=== PATIENT | male | born 1975 | race Caucasian/White ===

== ENCOUNTER → 2019-12-21 11:21 | Outpatient (CLI) | payer BC, SELFPAY ==
[2019-12-21 10:35] VITALS: BMI 32.4
--- NOTE | 2019-12-21 11:54 | RAD_ITS ---
STUDY: X-RAY - LEFT SHOULDER REASON FOR EXAM: Male, 44 years old. PAIN FOR FEW MONTHS, NO KNOWN INJURY TECHNIQUE: 4 view(s) of the shoulder. COMPARISON: None. FINDINGS: Normal glenohumeral articulation. Normal acromioclavicular joint. Normal acromion. Normal humeral head and visualized proximal humerus. The soft tissue structures are unremarkable. Normal visualized pulmonary apex. RAD/Shoulder min 2 Views IMPRESSION: Normal x-ray examination of the shoulder. Electronically Signed: Billy Hernandez MD at 6:36 EDT Tel , Service support ,
[2019-12-21 12:13] LABS: Absolute Lymphocyte Count 1.99 X10^3/uL (0.83-4.51); Absolute Neutrophil Count 2.3 X10^3/uL (2.0-7.7); Basophil# 0.03 X10^3/uL; Basophil% 0.6 % (0-1); Eosinophil# 0.14 X10^3/uL; Eosinophils% 2.9 % (0-5); Hematocrit 44.5 % (40-54); Hemoglobin 14.7 g/dL (13.0-16.5); Lymphocyte # 1.99 X10^3/ul (4.0); Lymphocyte % 40.6 % (19-41); Mean Corpuscular Hgb 29.6 pg (27.0-32.0); Mean Corpuscular Volume 89.5 fL (80-94); Mean Platelet Vol. 9.8 fl (6.2-12.0); Monocyte# 0.43 X10^3/uL; Monocyte% 8.8 % (0-10); NRBC Flagged by Analyzer 0 % (0-5); Neutrophil # 2.29 X10^3/uL (2.7-7.7); Neutrophil % 46.7 % (47-70); Platelet Count 284 K/mm3 (150-450); RBC Distribution Width CV 11.8 % (11.6-14.6); RBC Distribution Width SD 38.1 fl (35.1-43.9); Red Blood Count 4.97 M/mm3 (4.6-6.2); White Blood Count 4.9 K/mm3 (4.4-11.0)
[2019-12-21 15:36] LABS: Albumin, Serum 4.2 g/dL (3.2-5.0); BUN 13 mg/dL (7-18); BUN/Creat Ratio 14.3 RATIO (10-20); Creatinine, Serum 0.91 mg/dL (0.70-1.30); EST Glomerular Filtration Rate 97 mL/min (>60); Est Glom Filt Rate - Afr Amer 117 mL/min (>60); Glucose 89 mg/dL (74-106); Protein, Total 7.5 g/dL (6.4-8.2)
[2019-12-21 15:37] LABS: ALB/GLOB Ratio 1.3 RATIO (0.9-2.4); AST(SGOT) 19 U/L (15-37); Alanine Aminotransfer ALT/SGPT 58 U/L (16-61); Alkaline Phosphatase 77 U/L (45-117); Anion Gap 3 (5-15); Chloride 106 mmol/L (98-107); Cholesterol 197 mg/dL (200); Globulin 3.3 g/dL (2.2-4.2); High Density Lipoprotein 50 mg/dL; Sodium Level 139 mmol/L (136-145); Triglycerides 172 mg/dL; Very Low Density Lipoprotein 34 mg/dL (5-40)
== END ==
PROVIDERS: PCP Internal Medicine; Referring Provider Internal Medicine; Visit Provider Internal Medicine
DX: I10 Essential (primary) hypertension (principal); M25.512 Pain in left shoulder
CPT/HCPCS: 36415; 73030; 80053; 80061; 85025

== ENCOUNTER → 2020-05-16 07:08 | Outpatient (CLI) | payer BC, SELFPAY ==
--- NOTE | 2020-05-16 07:15 | MRI_ITS ---
STUDY: MRI LEFT SHOULDER REASON FOR EXAM: Left shoulder pain for over 6 months, question weight lifting injury. TECHNIQUE: Standardized fat and water weighted pulse sequences were obtained in all 3 orthogonal planes. COMPARISON: Radiographs 12/21/2019. FINDINGS: There is mild supraspinatus tendinosis and a small full-thickness tear of the distal anterior supraspinatus tendon (T2 coronal image 8; T2 sagittal image 17; proton-density axial image 5) measuring approximately 1.0 x 0.8 cm (length x width). Normal infraspinatus tendon. Normal subscapularis tendon. Normal teres minor tendon. Normal supraspinatus muscle. Normal infraspinatus muscle. Normal subscapularis muscle. Normal teres minor muscle. There is a very small volume of fluid in the glenohumeral joint. Normal humeral head and visualized proximal humerus. Normal biceps labral complex. There is mild tendinosis of the intracapsular long biceps tendon (T2 sagittal images 10-12). Normal labrum. Normal capsulo- ligamentous complex. There is mild acromioclavicular arthrosis without substantial undersurface osteophytes (T2 sagittal image 10). There is a Type II morphology (curved), with a neutral orientation. There is a small volume of subacromial-subdeltoid bursal fluid. There is thickening of the coracoacromial ligament (T2 sagittal image 14). Normal deltoid muscle. Normal trapezius muscle. MRI/Upper Ext Joint Only(Routine) IMPRESSION: Small full-thickness tear and mild tendinosis of the supraspinatus tendon. Mild tendinosis of the long biceps tendon. Mild acromioclavicular arthrosis. Thickening of the coracoacromial ligament. Glenohumeral joint fluid communicating with the subacromial-subdeltoid bursa. Electronically Signed: Tristan Shearer MD at 10:46 EST Tel , Service support ,
== END ==
PROVIDERS: PCP Internal Medicine; Referring Provider Orthopaedic Surgery; Visit Provider Orthopaedic Surgery
DX: M25.512 Pain in left shoulder (principal); M19.012 Primary osteoarthritis, left shoulder
CPT/HCPCS: 73221

== ENCOUNTER 2020-05-27 07:03 | Day surgery (SDC) | payer BC, SELFPAY ==
[2020-03-28 11:01] VITALS: BMI 32.7
[2020-05-27] MEDS: Lactated Ringers 1,000 ML 100 ML IV ×2 (07:20→13:20)
[2020-05-27 07:34] VITALS: BP 152/69; PULSE 63; RESP 16; TEMP 36.3; O2SAT 100; BMI 33.5
--- NOTE | 2020-05-27 09:57 | HP.PCM_ITS ---
History and Physical Date of Admission: 05/27/20 Intake Intake Visit Reasons: LEFT SHOULDER Chief Complaint: 3 M F/U Shoulder pain and elevated blood pressure Allergies No Known Allergies Allergy (Verified 03/28/20 11:00) [facility] Surgical History history of right shoulder surgery (Acute) Family History Father Charcot-Belen disease Social History (Updated 05/19/20 @ 15:[address] Rj Prabhakar DO) Smoking Status: Never smoker alcohol intake: never substance use type: does not use what type of physical activity do you participate in: weight training HPI LEFT SHOULDER: Details: Parts of this documentation were recorded by a scribe, this documentation accurately reflects the service provided and the decisions made by me, Dr. Rj Prabhakar DO 05/19/20 0757. LAURE CURRY is a 44 year old M here today for F/U after MRI of the left shoulder. He continues to have pain over the AC Joint. Denies any changes since the last visit. Denies numbness, tingling or other associated symptoms.He also pain over his trap and tightness over the trap. He states that he has pain with weight lifting over head. ROS Const Reports weakness Musc Reports joint pain, Reports decreased muscle mass, Denies joint swelling, Denies limited joint movement, Denies numbness, Denies radiating pain into limb, Reports stiffness, Denies tingling Skin/Breast Denies redness, Denies lesions, Denies itching, Denies rash, Denies skin swelling Neuro No numbness, No tingling, Yes weakness Ortho Exam General General: Yes no acute distress Neurologic: Yes alert, Yes oriented x3 Psychologic: Yes reasonable and appropriate Left Shoulder Skin/Wound: No ecchymosis, No erythema, No swelling Testing: Yes Hawkin's, No Speed's, No TTP Biceps (mild), Yes TTP AC Joint, No Drop Arm, No Apprehension Test SHOULDER: 5 out of 5 rotator cuff strength no pain with resisted maneuvers Supplemental Info 05/16/2020 MRI left shoulder:Read as small full-thickness tear anterior supraspinatus mild tendinosis long head bicepsThere is AC joint arthrosis with mild edemaIn the bone and inferior spurring. 12/21/2019 x-ray left shoulder mild anterior acromial spurring mild rimming osteophytes of glenoid circumferentially Assessment & Plan Problems 1. Arthritis of left acromioclavicular joint M19.012 2. Impingement syndrome, shoulder, left M75.42 3. Nontraumatic complete tear of left rotator cuff M75.122 Plan Personally reviewed patients MRI of the left shoulder. Patient educated that the MRI shows that he has a Full-thickness small anterior supraspinatus Tendon tear. However he does not seem to have any rotator cuff pain on examination and good strength seems to be all related to the AC joint. He does have arthritis of the AC joint and edema. He does have some degenerative changes to the biceps but no tears noted. Treatment options are left AC joint injection or surgery forDistal clavicle excision subacromial decompression possible rotator cuff repair. Patient wishes to proceed with his surgical option. If there is no RTC repair then he will be able to move the arm as tolerated with mild restrictions if there is a repair he will be in a sling for 6 weeks post op. Reviewed the pre- operative plans with the patient. Risks and benefits of the procedure were fully explained, including but not limited to infection, neurovascular injury, continued pain, arthritis, stiffness, need for further surgery, re-injury, DVT, PE, general risks of anesthesia, and loss of limb or life. The patient understands all the risks and does wish to proceed with written consent for left shoulder arthroscopic subacromial decompression, evaluation of RTC possible RTC repair, open distal clavicle resection, surgery as indicated. Follow up 2 weeks post op or sooner if pain, swelling, numbness or associated symptoms, or concerns develop. All questions answered. Patient in agreement of plan. Coding Level of Care Code Off vis,est,level 3 Diagnoses Arthritis of left acromioclavicular joint M19.012 ??Laterality: left Impingement syndrome, shoulder, left M75.42 Nontraumatic complete tear of left rotator cuff M75.122 ??Rotator cuff tear extent: complete ??Rotator cuff tear trauma status: nontraumatic I have re-examined the patient. There are no clinical changes since date of exam
[2020-05-27] MEDS: Cefazolin 2 GM in 0.9% Normal Saline 100 ML IV (10:58)
[2020-05-27] MEDS: Bupiv/Epi 0.5% Mpf 30 ML Vial (11:07)
[2020-05-27] MEDS: Epinephrine (1 mg/ml) 1 MG/ML VIAL (11:10)
--- NOTE | 2020-05-27 12:17 | DCINST_ITS ---
Discharge Diet: No Restrictions Call your doctor if you observe: Shortness of breath, Chest pain Additional Instructions: Leave the dressing on and intact for 48 hours. . Then may remove and shower with warm water and antibacterial soap. But do not submerge in tub for 3 weeks. Ice shoulder 15 min on and 15 mins off next 72 hrs. May remove sling for elbow range of motion and pendulum exercises only then replace sling. Absolutely no active shoulder motion. Do not lift push pull at all with operative extremity . Encourage finger and wrist range of motion. Doxycycline antibiotic has been shown to aid in rotator cuff healing please take as directed . If any concerns call Dr. Prabhakar's office. Allergies/Adverse Reactions: Allergies No Known Allergies Allergy (Verified 05/27/20 07:32) Medications to take at Discharge multivitamin with minerals-folic acid 200 mcg chewable tablet 200 mcg PO .BID tab 12/13/19 meloxicam 15 mg tablet 15 mg PO DAILY PRN #90 tab 03/28/20 Acetaminophen [Tylenol Extra Strength] 1,000 mg PO Q6H PRN #100 tab 05/27/20 Doxycycline 100 mg PO BID #30 cap 05/27/20 Oxycodone [Oxyir] 5 mg PO Q4H PRN PRN #50 tablet 05/27/20 The following prescriptions were given: Doxycycline 100 mg PO BID #30 cap Transmission Status: Pending to [facility] Oxycodone [Oxyir] 5 mg PO Q4H PRN PRN #50 tablet PRN Reason: Pain Score 6-10 Transmission Status: Sent to [facility] Acetaminophen [Tylenol Extra Strength] 1,000 mg PO Q6H PRN #100 tab Transmission Status: Pending to [facility] Primary Care Physician: Dick Kulkarni MD [Primary Care Provider] - Test Results: Test results from this visit will be discussed in further detail at your follow- up appointment, if applicable. Please Follow Up With: Rj Prabhakar DO - 2 weeks
--- NOTE | 2020-05-27 12:18 | OP.PCM_ITS ---
Report of Operation Date of Procedure: 05/27/20 Description of Surgical Findings:: Preoperative diagnosis: Left shoulder AC joint arthritis and impingement, full- thickness anterior supraspinatus rotator cuff tear Postoperative diagnosis: Same+ type II SLAP tear Procedure: Left shoulder arthroscopic subacromial decompression , arthroscopic rotator cuff repair with single Arthrex 4.75 swivel lock , labral debridement biceps tenotomy and open distal clavicle excision Anesthesia: General with interscalane block; EBL: 10 cc Complications: none Indication for procedure: This is a 44-year-old male patient with ongoing AC joint pain who has failed conservative treatment as well as anterior shoulder pain and impingement he did have an MRI which demonstrate AC joint arthrosis and a full-thickness anterior supraspinatus cuff tear, we discussed risks benefits and alternatives of the procedure were reviewed including risk of bleeding infection nerve artery tissue damage need for further surgery continued pain postoperative stiffness and need for postoperative physical therapy and continued pain. He did wish to proceed with an arthroscopic evaluation of rotator cuff possible repair surgery as indicated and open distal clavicle excision. Procedure : Patient was met in the preoperative holding area the operative extremity was identified by both the patient and the physician and was marked. Patient was met by anesthesia and brought back to the operating room on a wheeled cart. She was transferred to the operating table in the supine position. Anesthesia was started. Patient was then positioned in the beach chair configuration. Bony prominences were well-padded. The patient was prepped and draped in the usual sterile fashion. A timeout was called to ensure the proper patient procedure and extremity were being contemplated. Anatomic landmarks were palpated and marked with a marking pen. A 0.25% Marcaine with epinephrine was injected into the planned portal sites. An 11 blade scalpel was used to make a stab incision in the posterior lateral portal. Arthroscope was inserted into the glenohumeral space with ease. Inflow and outflow tubes were attached and arthroscopic visualization began. Medially there was noted to be type II SLAP tearing of the anterior attenuated labrum as well as a peelback sign. Also there was noted to be full-thickness tearing of the anterior supraspinatus. The glenohumeral articulation was okay there was mild glenohumeral wear in the anterior glenoid. There is no loose bodies. It was determined secondary to his age and need for rotator cuff repair to perform biceps tenotomy as opposed to labral repair. This was performed with an ArthroCare wand fraying edge of the labrum were debrided with a shaver. The labrum then set down in its appropriate position. an lateral portal was established with an 18-gauge spinal needle. tsub-acromial decompression of bursal tissue as well as acromioplasty were performed as anterior acromial spurring which was removed with a bur. The bursal side of the cuff was evaluated and the footprint of the anterior supraspinatus was debrided with a bur horizontal mattress with fiber tape was placed through the anterior supraspinatus and was prepared to a lateral anchor and the cuff therefore laid directly down onto the prepared footprint spinal needles were placed anterior and posterior to the distal clavicle under arthroscopic visualization . the wound was thoroughly irrigated through the scope. Suture portals were closed with 3-0 nylon arthroscopic stitches followed by Xeroform 4 x 4 ABD and a Ioban dressing. A linear incision was made superior to the AC joint and carried down as full-thickness flaps dissecting subperiosteally around the distal clavicle Hohmann retractors were placed anterior and posterior to the distal clavicle and TPSoscillating saw was used to remove 1.5 cm of distal clavicle and osteotome was used to free the fragment and a towel clip and sharp dissection was used to remove the fragment. Deep tissues were closed with 2-0 Vicryl [id number] followed by 3-0 Vicryl subcutaneous stitches and 3-0 monocryl in the skin Xeroform 4 x 4 ABD and Ioban dressing was placed A abduction sling was placed. Anesthesia was reversed and patient tolerated the procedure well was and was transferred to the PACU all counts were correct patient will follow-up in the office in 2 weeks we will follow standard rotator cuff repair protocol
[2020-05-27 12:45] VITALS: BP 119/72; BP 152/69; PULSE 66; RESP 16; TEMP 36.2; O2SAT 93
[2020-05-27 13:00] VITALS: BP 109/67; BP 152/69; PULSE 59; RESP 16; O2SAT 96
[2020-05-27 13:15] VITALS: BP 113/74; BP 152/69; PULSE 51; RESP 16; TEMP 36.1; O2SAT 95
[2020-05-27 14:35] VITALS: BP 117/80; BP 152/69; PULSE 52; RESP 16; TEMP 36; O2SAT 92
[2020-05-27 15:00] VITALS: BP 152/69
== END 2020-05-27 15:20 | disposition home or self-care (01) ==
LOC: SDC 07:04 → AC 07:04
PROVIDERS: PCP Internal Medicine; Referring Provider Orthopaedic Surgery; Visit Provider Orthopaedic Surgery
PROC: (CPT 29827; principal; 2020-05-27 09:25)
DX: M19.012 Primary osteoarthritis, left shoulder (principal); M75.122 Complete rotator cuff tear or rupture of left shoulder, not specified as traumatic; M75.42 Impingement syndrome of left shoulder
CPT/HCPCS: 01630; 29824; 29826; 29827; 29828; 87426; C9803; J7120; J2405

== ENCOUNTER 2020-09-12 14:30 | Outpatient (RCR) | payer BC, SELFPAY ==
--- NOTE | 2020-06-13 13:07 | HP.PTEVAL ---
Patient's Visit Information LAURE CURRY is a 44 year old M referred to Physical Therapy by Dr. Rj Prabhakar DO with a diagnosis of R RCR 05/27/20. Date of Evaluation: 06/13/20 Physical Therapist: Sravan Ferrera, SORINT, OCS, CSCS - Visit Plan Frequency: 1x/Week Duration: 4 Months Plan: weekly x 12-14 as needed for. 1. PROM is only thing allowed by doctor right now until f/u 07/07. Ensure PROM remains full adn pain and swelling remain down until progress can be made via doctor orders. Eventually will need progression to AAROM/AROM/strength adn return to function. - Subjective Surgery on L shoulder fixing RC adn labrum adn cleaned out bone spurs adn clavcle resection on 05/27/20. Origiinal injury was insidous but had been hurting for months. Had cortisone prior which did not help and recommended surgery. Symptoms before surgery was achy at night and kept him from working out like he wants to. Currently not al lot of pain. Dull ache/tightness in anterior L shoulder originally. Pain this week was 4/10 but mostly 0 at rest. Is in sling much of day unless sitting and resting arm. Doing pendulum. stitches out on Tuesday and PROM with other arm. Not icing lately. Off due to surgery. 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 Sleeping not in sling and is OK on his back on adjustable bed. Doing basics at home. steps not a problem. Lifting is a hobby and wants to get back to free weights. Also plays [employer] adn cannot do that. - Pain L shoulder top Pain Intensity (Out of 10): 0 Pain Intensity Range: 0, 4 - Objective Cervical and scapular L AROM full and slight pain scapula. Posture is slight forward head. Incision are arthroscopic adn healed well adn larger incision top of shoulder which looks good. No drainage, no signs of redness heat or swelling. Only slight scar tissue. Elbow aROM is full adn painfree today B. R shoulder aROM is full and painfrr. wrist adn hand AROM WFL adn full B. L shoulder PROM flexion 161, abd 160, ext rottation 82 and IR 70 adn 80 abd all without excessive pain or pulling or really any firm endfeel. - Goals Goal 1:: ST: Full PROM adn pain 1/10 at worst achieved adn maintained until doctor f/u at 6 weeks Goal Time Frame: 2-4 Weeks Goal 2:: LT: Full aROM without pain or problem Goal Time Frame: 6-8 Weeks Goal 3:: Patient return to wrok without difficulty light duty Goal Time Frame: 4-6 Weeks Goal 4:: LT Patient ready to return to full duty work Goal Time Frame: 8-12 Weeks Goal 5:: Pt lifting for exercises without pain or concerns Goal Time Frame: 8-12 Weeks Goal 6:: Quick dash score 1 or less Goal Time Frame: 8-12 Weeks - Rehabilitation Potential Physical Therapy Diagnosis: weakness and functional deficits after RCR Rehabilitation Potential: Good - Anticipated Interventions Patient/Client Instruction: Educate patient on: Condition, Plan of Care For the Purpose of:: To decrease pain, To increase ROM, To improve muscle performance and motor function, To increase tolerance to activity/condition/position Therapeutic Exercise to Include: Strength training, Passive ROM, Active ROM Comment: PROM for first 3 weeks For the Purpose of:: To decrease pain, To increase ROM, To improve nutrient delivery to tissue, To improve muscle performance and motor function, To increase tolerance to activity/condition/position, To improve ability of physical actions for home/community/work/leisure, To improve gait and locomotor functions Manual Therapy Techniques to Include: Scar massage, Passive ROM For the Purpose of:: To increase ROM Thank you for the opportunity to evaluate your patient. For Medicare and Medicare HMO plans, please review the plan of care and approve it. It will need to be FAXED BACK to us at [phone] for Medicare purposes. For Medicare only, by signing this I certify the plan of care. Please let me know if there are questions or concerns regarding this plan of care. Physician Signature: Date:
--- NOTE | 2020-07-04 12:16 | HP.PTREVAL_ITS ---
Dr. Rj Prabhakar, DO, It has been my pleasure to treat LAURE CURRY over the last 3 visits for R RCR 05/27/20. Please see the progress note below for an update on the physical therapy plan of care! Subjective: No real pain. Home exercises going well. wearing sling out and about but not at home. Overall feeling great. Getting antsy to do more. Objective/Function: Pt is doing wonderfully with ROM adn pain! Pt has full PROM felxiona dn abduction without pain. IR slightly tight at 80 at 80 abd. Ext rotation is full and painfree. Able to actively elevate with SLA L hand OH easily and without pain. Full aROM of L scap and elbow, wrist.neck. Plan Plan: Pt to doctor for progression next Tuesday. Plan to progress to phase 2 next week and then strengthening to tolerance adn as allowed by doctor(current script is only for PROM). Will see weekly for 4-6 weeks for this progression Goals Goal 1:: ST: Full PROM adn pain 1/10 at worst achieved adn maintained until doctor f/u at 6 weeks Goal Time Frame: 2-4 Weeks Goal Progress: Goal Met Goal 2:: LT: Full aROM without pain or problem Goal Time Frame: 6-8 Weeks Goal Progress: Progressing Goal 3:: Patient return to wrok without difficulty light duty Goal Time Frame: 4-6 Weeks Goal 4:: LT Patient ready to return to full duty work Goal Time Frame: 8-12 Weeks Goal 5:: Pt lifting for exercises without pain or concerns Goal Time Frame: 8-12 Weeks Goal 6:: Quick dash score 1 or less Goal Time Frame: 8-12 Weeks Anticipated Interventions Patient/Client Instruction: Educate patient on: Condition, Plan of Care For the Purpose of:: To decrease pain, To increase ROM, To improve muscle performance and motor function, To increase tolerance to activity/condition/position Therapeutic Exercise to Include: Strength training, Passive ROM, Active ROM Comment: PROM for first 3 weeks For the Purpose of:: To decrease pain, To increase ROM, To improve nutrient delivery to tissue, To improve muscle performance and motor function, To increase tolerance to activity/condition/position, To improve ability of physical actions for home/community/work/leisure, To improve gait and locomotor functions Manual Therapy Techniques to Include: Scar massage, Passive ROM For the Purpose of:: To increase ROM Please do not hesitate to contact me at [phone] by phone or Fax: if you have questions or concerns regarding this new plan of care! Sincerely, Sravan Ferrera, DPT, OCS, CSCS
--- NOTE | 2020-08-15 12:12 | HP.PTREVAL ---
Dr. Rj Prabhakar, DO, It has been my pleasure to treat LAURE CURRY over the last 9 visits for R RCR 05/27/20. Please see the progress note below for an update on the physical therapy plan of care! Subjective: Sometmes up to 2/10 soreness but doing well with ROM. Sleeping well. No real problems. Work going well. Objective/Function: Full aROM without pain today. Much better than usual at this point and has been that way throughout sessions. No pain. Overall doing very well with AROM and has started gentle strengthening. Plan Plan: to doctor next week, progres to machines if doing wella dn continue home progresion. Plan to cotninue for 3-4 visits to progress strength as tolerated over next 4-6 weeks then d/c unless otherwise instructed. Goals Goal 1:: ST: Full PROM adn pain 1/10 at worst achieved adn maintained until doctor f/u at 6 weeks Goal Time Frame: 2-4 Weeks Goal Progress: Goal Met Goal 2:: LT: Full aROM without pain or problem Goal Time Frame: 6-8 Weeks Goal Progress: Goal Met Goal 3:: Patient return to wrok without difficulty light duty Goal Time Frame: 4-6 Weeks Goal Progress: Goal Met Goal 4:: LT Patient ready to return to full duty work Goal Time Frame: 8-12 Weeks Goal 5:: Pt lifting for exercises without pain or concerns Goal Time Frame: 8-12 Weeks Goal 6:: Quick dash score 1 or less Goal Time Frame: 8-12 Weeks Anticipated Interventions Patient/Client Instruction: Educate patient on: Condition, Plan of Care For the Purpose of:: To decrease pain, To increase ROM, To improve muscle performance and motor function, To increase tolerance to activity/condition/position Therapeutic Exercise to Include: Strength training, Passive ROM, Active ROM Comment: PROM for first 3 weeks For the Purpose of:: To decrease pain, To increase ROM, To improve nutrient delivery to tissue, To improve muscle performance and motor function, To increase tolerance to activity/condition/position, To improve ability of physical actions for home/community/work/leisure, To improve gait and locomotor functions Manual Therapy Techniques to Include: Scar massage, Passive ROM For the Purpose of:: To increase ROM Please do not hesitate to contact me at [phone] by phone or if you have questions or concerns regarding this new plan of care! Sincerely, Sravan Ferrera, DPT, OCS, CSCS
--- NOTE | 2020-08-22 15:51 | HP.PTREVAL ---
Dr. Rj Prabhakar, DO, It has been my pleasure to treat LAURE CURRY over the last 10 visits for R RCR 05/27/20. Please see the progress note below for an update on the physical therapy plan of care! Subjective: Doctor gave good report, on light duty for another month then released, no f/u with doctor necessary. Objective/Function: Full aROM without pain today before and after. No pain with these exercises today and no problems or concerns. Plan Plan: f/u three weeks unless concerns prior. recheck and try squat or cleans if patient wants or others that he is desiring to do. May need purple band Goals Goal 1:: ST: Full PROM adn pain 1/10 at worst achieved adn maintained until doctor f/u at 6 weeks Goal Time Frame: 2-4 Weeks Goal Progress: Goal Met Goal 2:: LT: Full aROM without pain or problem Goal Time Frame: 6-8 Weeks Goal Progress: Goal Met Goal 3:: Patient return to wrok without difficulty light duty Goal Time Frame: 4-6 Weeks Goal Progress: Goal Met Goal 4:: LT Patient ready to return to full duty work Goal Time Frame: 8-12 Weeks Goal Progress: one month doc orders Goal 5:: Pt lifting for exercises without pain or concerns Goal Time Frame: 8-12 Weeks Goal Progress: started. Goal 6:: Quick dash score 1 or less Goal Time Frame: 8-12 Weeks Goal Progress: at 4 now. Anticipated Interventions Patient/Client Instruction: Educate patient on: Condition, Plan of Care For the Purpose of:: To decrease pain, To increase ROM, To improve muscle performance and motor function, To increase tolerance to activity/condition/position Therapeutic Exercise to Include: Strength training, Passive ROM, Active ROM Comment: PROM for first 3 weeks For the Purpose of:: To decrease pain, To increase ROM, To improve nutrient delivery to tissue, To improve muscle performance and motor function, To increase tolerance to activity/condition/position, To improve ability of physical actions for home/community/work/leisure, To improve gait and locomotor functions Manual Therapy Techniques to Include: Scar massage, Passive ROM For the Purpose of:: To increase ROM Please do not hesitate to contact me at [phone] by phone or if you have questions or concerns regarding this new plan of care! Sincerely, Sravan Ferrera, DPT, OCS, CSCS
--- NOTE | 2020-09-12 14:40 | HP.PTDCSUM ---
It has been my pleasure to treat LAURE CURRY referred by Dr. Rj Prabhakar DO, with the diagnosis of R RCR 05/27/20 for a total of 11 visit(s). Discharge Date: 09/12/20 Please see the following information for a summary of their discharge status. Subjective: No pain problems. No concerns with full duty release in two weeks. Sleeping well. Doing diagonals with blue band. Activites are normal outside of work. Doing stabilized squats easily. Wants to get back to deadlift. Otherwise doing well with exercises. L shoulder top Pain Intensity (Out of 10): 1 % Improvement: 90 Objective/Function: Full aROM symmetrical with R without pain today. Strength is 4+ in flexiona dn abd, 5 IR and bi and tri, 4+ in L ext rotation. Not painful, just weak. OVERALL PATIENT HAS DONE WELL AND CAN CONTINUE I ON OWN AT HOME, HAS BEEN AHEAD OF SCHEDULE ON PAIN, ROM AND STRENGTH THE ENTIRE REHAB PROCESS AND YET BEEN PATIENT. Goal 1:: ST: Full PROM adn pain 1/10 at worst achieved adn maintained until doctor f/u at 6 weeks Goal Progress: Goal Met Goal 2:: LT: Full aROM without pain or problem Goal Progress: Goal Met Goal 3:: Patient return to wrok without difficulty light duty Goal Progress: Goal Met Goal 4:: LT Patient ready to return to full duty work Goal Progress: Goal Met Goal 5:: Pt lifting for exercises without pain or concerns Goal Progress: Goal Met Goal 6:: Quick dash score 1 or less Goal Progress: at 4 now. Plan: d/c to [facility] Discharge Comments: Pt to contact doctor if unusual pain or swelling. If there are questions or concerns regarding this patient's physical therapy, please feel free to call me at [phone]. Thank you for the referral of this patient. Sincerely, Sravan Ferrera, DPT, OCS, CSCS
== END 2020-09-12 19:00 | disposition home or self-care (01) ==
LOC: PT 14:30
PROVIDERS: PCP Internal Medicine; Referring Provider Orthopaedic Surgery; Visit Provider Orthopaedic Surgery
DX: Z47.89 Encounter for other orthopedic aftercare (principal)
CPT/HCPCS: 97110; 97161; 97164; 97530

== ENCOUNTER → 2021-01-23 11:17 | Outpatient (CLI) | payer BC, SELFPAY | PROVIDERS: PCP Internal Medicine; Referring Provider Physician Assistant Surgical; Visit Provider Physician Assistant Surgical | DX: Z11.52 Encounter for screening for COVID-19 (principal) | CPT/HCPCS: 87635; U0005; U0003 ==

== ENCOUNTER → 2021-01-26 08:36 | Outpatient (CLI) | payer BC, SELFPAY | PROVIDERS: PCP Internal Medicine; Visit Provider Physician Assistant | DX: U07.1 COVID-19 (principal) | CPT/HCPCS: 87635; U0005; U0003 ==

== ENCOUNTER → 2021-02-03 10:21 | Outpatient (CLI) | payer BC, SELFPAY ==
--- NOTE | 2021-02-03 10:20 | RAD_ITS ---
STUDY: X-RAY CHEST REASON FOR EXAM: Male, 45 years old. Fever and cough TECHNIQUE: PA and lateral views of the chest. COMPARISON: None. FINDINGS: The lungs are clear and expanded. There is no demonstrated pleural abnormality. Normal size heart. Normal mediastinum and david. Normal visualized pulmonary arteries. Normal visualized aortic arch and descending thoracic aorta. Normal visualized thoracic spine. Normal visualized ribs, clavicles, and shoulders. There is no demonstrated abnormality of the visualized soft tissue structures of the upper abdomen. RAD/Chest PA and Lateral IMPRESSION: Normal x-ray examination of the chest. Electronically Signed: Beto Jefferson MD at 11:53 EST , Service support ,
== END ==
PROVIDERS: PCP Internal Medicine; Referring Provider Nurse Practitioner Family; Visit Provider Nurse Practitioner Family
DX: U07.1 COVID-19 (principal)
CPT/HCPCS: 71046

== ENCOUNTER 2021-04-01 13:05 | Outpatient (CLI) | payer BC, SELFPAY | END 2021-04-01 23:59 | disposition short-term general hospital (02) | LOC: LABSPEC 13:05 | PROVIDERS: PCP Internal Medicine; Referring Provider Physician Assistant; Visit Provider Physician Assistant | DX: Z11.52 Encounter for screening for COVID-19 (principal) | CPT/HCPCS: 87635; U0003; U0005 ==